=== PATIENT | female | born 1970 | race Caucasian/White ===

== ENCOUNTER 2020-01-20 13:25 | Emergency (ER) | payer BC ==
[~2020-01-20] VITALS: Ht 175.3 cm; Wt 82.1 kg
--- NOTE | 2020-01-20 13:25 | NUR ---
PT IS IN ROOM #2A. DR MCRAE EVALUATED THE PT.
[2020-01-20] MEDS ORDERED: TAMO20TA4 PO (13:37)
[2020-01-20] MEDS ORDERED: IV NORMAL SALINE 1000 ML BAG IV ONE (13:45)
--- NOTE | 2020-01-20 13:45 | NUR ---
PT WENT TO CT DEPARTMENT FOR CT OF THE HEAD .
--- NOTE | 2020-01-20 14:00 | NUR ---
RADIOLOGY TECHNITIAN ERNA NOTIFIED DR MCRAE ABOUT PT's CT OF THE HEAD RESULTS. TELEMED IQ WAS NOT ACTIVETED ACCORDING ER MD ORDER. PT IS IN ROOM #2A AT THIS TIME. CONTINUE TO MONITOR THE PT.
[2020-01-20 14:12] LABS: BASOPHILS % (AUTO) 0.4 % (0.0-2.0); EOSINOPHILS # (AUTO) 0.1 K/uL (0.0-0.7); EOSINOPHILS % (AUTO) 1.7 % (0.0-7.0); HEMATOCRIT 34.2 % (31.2-41.9); HEMOGLOBIN 11.4 g/dL (10.9-14.3); LYMPHOCYTES % (AUTO) 13.8 % (20.5-51.5); MEAN CORPUSCULAR HEMOGLOBIN 28.4 uug (24.7-32.8); MEAN CORPUSCULAR HGB CONC 34 g/dL (32.3-35.6); MEAN CORPUSCULAR VOLUME 84.8 fL (75.5-95.3); MONOCYTES # (AUTO) 0.5 K/uL (2.0-10.0); MONOCYTES % (AUTO) 6.4 % (0.0-11.0); NEUTROPHILS # (AUTO) 5.9 K/uL (1.8-8.9); NEUTROPHILS % (AUTO) 77.7 % (38.5-71.5); PLATELET COUNT (AUTO) 384 K/uL (179-408); RED BLOOD CELL COUNT(AUTO) 4.03 MIL/uL (3.63-4.92); WHITE BLOOD COUNT (AUTO) 7.6 K/uL (3.8-11.8)
[2020-01-20] MEDS ORDERED: levETIRAcetam IV 1,000 MG in IV DEXTROSE 5% 100 ML IV ONE (14:15)
[2020-01-20 14:18] LABS: CREATININE 1.2 mg/dL (0.6-1.3); POTASSIUM 4.1 mmol/L (3.5-5.1)
[2020-01-20 14:24] LABS: BILIRUBIN,DIRECT 0.1 mg/dL (0.0-0.2); BILIRUBIN,TOTAL 0.5 mg/dL (0.2-1.0); TOTAL PROTEIN, SERUM 7.4 g/dL (6.4-8.2)
--- NOTE | 2020-01-20 14:35 | NUR ---
DR MCRAE TALKED TO DR BREWSTER FROM [facility] TO ARRANGE PT's TRANSFER TO [facility] HIGHER LEVEL OF CARE.
[2020-01-20 14:52] LABS: THYROID STIMULATING HORMONE 4.863 mIU/mL (0.358-3.740)
--- NOTE | 2020-01-20 15:04 | NUR ---
PT's INFORMATION WAS FAXED TO MARQUITA AT [facility] ( FAX : [phone]).
--- NOTE | 2020-01-20 16:08 | NUR ---
MARQUITA FROM [facility] CALLED WITH TRANSFER INFORMATION. PT IS GOING TO GO TO [facility] , TELEMETRY FLOOR, ROOM #[id number]. ACCEPTING MD IS DR HURTADO. TELEPHONE NUMBER FOR REPORT # [phone].
--- NOTE | 2020-01-20 17:11 | NUR ---
PT WAS TRANSFERED TO [facility]IA [facility]. REPORT WAS GIVEN TO AMBULANCE RN. REPORT WAS GIVEN TO [facility] RN JEANETH.
== END 2020-01-20 17:33 | disposition short-term general hospital (02) ==
LOC: ER 13:31
DX: I61.1 Nontraumatic intracerebral hemorrhage in hemisphere, cortical (principal); R48.8 Other symbolic dysfunctions; G81.94 Hemiplegia, unspecified affecting left nondominant side; R40.2362 Coma scale, best motor response, obeys commands, at arrival to emergency department; R40.2142 Coma scale, eyes open, spontaneous, at arrival to emergency department; R40.2252 Coma scale, best verbal response, oriented, at arrival to emergency department; C79.31 Secondary malignant neoplasm of brain; Z85.3 Personal history of malignant neoplasm of breast; Z90.13 Acquired absence of bilateral breasts and nipples; G93.6 Cerebral edema; R00.0 Tachycardia, unspecified; R94.6 Abnormal results of thyroid function studies; Z92.21 Personal history of antineoplastic chemotherapy; Z92.3 Personal history of irradiation
CPT/HCPCS: 36415; 70450; 71045; 80048; 80076; 84443; 84484; 84702; 85025; 85730; 93005; 96361; 96365; 99291; J1953; J7060; 70030-TC; A4663; J7030